=== PATIENT | male | born 1970 | race Caucasian/White ===

== ENCOUNTER 2019-09-01 19:14 | Inpatient (IN) | payer OTHER, SELFPAY ==
[2018-12-07 14:03] VITALS: BMI 28.3
[2019-09-01] VITALS (10 sets, daily range): BP systolic 124–170; BP diastolic 74–95; PULSE 76–117; RESP 16–30; TEMP 36.6–37.7; O2SAT 91–99; BMI 28.4; BMI 27.6
--- NOTE | 2019-09-01 19:25 | EKG12_ITS ---
Test Reason : CP Blood Pressure : / mmHG Vent. Rate : 108 BPM Atrial Rate : 108 BPM P-R Int : 138 ms QRS Dur : 094 ms QT Int : 324 ms P-R-T Axes : 027 043 026 degrees QTc Int : 434 ms Sinus tachycardia Otherwise normal ECG Confirmed by ROEL HAN, JONY ([id number]), editor newspaper CORINA GUPTA ([id number] on 09/03/2019 11:16:22 AM Referred By: UG Confirmed By:JONY SEVILLA MD
--- NOTE | 2019-09-01 19:30 | ED.VIS.GEN ---
History of Present Illness Chief Complaint: Weakness Detail of Chief Complaint: Altered mental status after ingestion of 2000 mg cannabis oil Informant: Significant Other, Ruby Rails Developer Limited by: Coma, Intoxicated, Stupor Onset: Hours Context: Sudden Onset Timing: Continuous Quality: Patient with altered mental status Location: From home Current Severity: Severe Maximum Severity: Severe Worsened by: Ingestion of 2000 mg cannabis oil Relieved by: Nothing Associated Symptoms: Unable to determine Narrative: Patient is a 49-year-old male with history of hypertension. does not know what medications he is on. He apparently consumed CBD concentrated oil. Two thirds of the bottle is empty. A vial contains 3000 mg. Presume patient ingested 2000 mg. Since he has altered mental status with dilated pupils with generalized weakness and inability to sit upright or control the use of his extremities poison control was contacted. They recommended benzodiazepine for agitation. They said there is concern for hypothermia and hyperthermia. If this occurs they recommend contacting them again. Because there is concern for hypothermia and hyperthermia a temperature probe Ospina was placed. I was informed this is a significant ingestion. Therefore once labs return will contact hospitalist for admission. Prior similar symptoms: No Recent Illness/Hospitalization: No - Past Medical History (1) Dyspnea on exertion Status: Acute (2) Essential (primary) hypertension Status: Chronic (3) Hyperlipidemia Status: Chronic Past Medical History - Allergies and Home Meds Allergies/Adverse Reactions: Allergies atenolol Adverse Reaction (Verified 09/01/19 19:15) unknown atorvastatin [From Lipitor] Adverse Reaction (Verified 09/01/19 19:15) myalgia isosorbide Adverse Reaction (Verified 09/01/19 19:15) headache simvastatin Adverse Reaction (Verified 09/01/19 19:15) myalgia Primary Care Physician: Lyndsay Hardy DO [Primary Care Provider] - Prior records reviewed: Yes Surgical History: noncontributory Lives: Spouse/ Significant Other Smoking Status: Current some day smoker Drugs: Marijuana Review of Systems ROS: Unable to Obtain Physical Exam Vital Signs/Narrative: Vital Signs Temp Pulse Resp BP Pulse Ox 09/01/19 19:15 97.8 F 115 H 30 H 170/95 H 96 Inital Vital Signs reviewed: Yes General: Well nourished, Well developed, No Acute Distress Head: Normocephalic, Atraumatic. Negative for: Trauma, Tenderness Eyes: Negative for: Perrl - Pupils are 5 to 6 mm in size and do react. Gaze is disconjugate., Pale conjunctiva, Scleral icterus ENT: No rhinorrhea, TM's clear. Negative for: Moist mucous membranes Neck: Supple, Nontender, No lymphadenopathy, No JVD, - - Neck he has midline. There is no inspiratory expiratory stridor. Cardiovascular: Regular rhythm, No murmurs, Normal S1, Normal S2, Tachycardia Respiratory: No distress, CTA bilaterally, Chest nontender Abdomen: Soft, Nontender, Nondistended, Normal bowel sounds, No masses Rectal: Deferred Back: Nontender, Normal Inspection Extremities: No edema Skin: Normal color, No rash, No Trauma. Negative for: Cyanosis, Diaphoresis, Jaundice Neurological: Cranial nerves II-XII grossly intact, Normal Sensation - Grimaces to noxious stimuli., Normal DTR - There is no clonus or Babinski sign.. Negative for: Alert, Oriented x3, Normal Strength, Normal Gait Diagnostic/Tx/Re-eval Laboratory Results 09/01/19 09/01/19 09/01/19 19:24 19:24 19:24 WBC 4.0 L RBC 5.06 Hgb 16.2 Hct 45.9 MCV 90.7 MCH 32.0 MCHC 35.3 RDW Std Deviation 37.8 RDW Coeff of Alexi 11.5 L Plt Count 222 MPV 9.5 Immature Gran % (Auto) 0.800 Neut % (Auto) 62.3 Lymph % (Auto) 22.0 [place] % (Auto) 8.8 Eos % (Auto) 4.8 Baso % (Auto) 1.3 H Absolute Neuts (auto) 2.5 Absolute Lymphs (auto) 0.87 Nucleated RBC % 0 Sodium 140 Potassium 3.2 L Chloride 103 Carbon Dioxide 29.0 Anion Gap 8 BUN 15 Creatinine 1.34 H Estim Creat Clear Calc 68.85 Est GFR (MDRD) Af Amer 73 Est GFR (MDRD) Non-Af 60 BUN/Creatinine Ratio 11.2 Glucose 118 H Lactic Acid 1.8 Calcium 9.1 Total Bilirubin 0.50 AST 29 ALT 55 Alkaline Phosphatase 73 Total Protein 7.2 Albumin 3.6 Globulin 3.6 Albumin/Globulin Ratio 1.0 - Rhythm Strip Rhythm Strip: Sinus Tach Rate: 122 Ectopy: None - EKG Initial EKG Interpretation: Sinus Tachycardia - Tachycardia with a ventricular rate of 108. OR interval 138 ms. QRS duration 94 ms. QT duration 324 ms. [place] is normal. Only abnormality is sinus tachycardia - Medical Decision Making Patient was made n.p.o. IV was placed. Placed on the monitor. Temperature probe Ospina for reasons previously documented. Blood work was obtained. Care is supportive. If he has difficulty controlling airway recommendation is intubation to protect his airway. If he becomes hypothermic or hyperthermic will contact poison control again. The person at poison control recommended benzodiazepines if he becomes agitated. Nurses been made aware need for temperature probe Ospina and reason why. Case was discussed with hospitalist. He request I spoke with advertising copywriter. Spoke with Dr. Hemal Jefferson. Plan is admission to ICU. - Critical Care Time Critical care time (excluding procedures): 30-74 minutes, Discussing w/Patient &/or Family/Third Helper, Discussing w/Consultants, Arranging Admission or Transfer - Critical care time 33 minutes ED Disposition - Plan for ED Patient: Diagnosis: Cannabis abuse with intoxication with perceptual disturbance, Mydriasis (persistent), not due to mydriatics, Sinus tachycardia by electrocardiogram Referrals: Lyndsay Hardy DO [Primary Care Provider] -
[2019-09-01 19:40] LABS: Absolute Lymphocyte Count 0.87 X10^3/uL (0.83-4.51); Absolute Neutrophil Count 2.5 X10^3/uL (2.0-7.7); Basophil# 0.05 X10^3/uL; Basophil% 1.3 % (0-1); Eosinophil# 0.19 X10^3/uL; Eosinophils% 4.8 % (0-5); Hematocrit 45.9 % (40-54); Hemoglobin 16.2 g/dL (13.0-16.5); Lymphocyte # 0.87 X10^3/ul (4.0); Mean Corp Hgb Conc 35.3 g/dL (32-36); Mean Corpuscular Volume 90.7 fL (80-94); Mean Platelet Vol. 9.5 fl (6.2-12.0); Monocyte# 0.35 X10^3/uL; Monocyte% 8.8 % (0-10); NRBC Flagged by Analyzer 0 % (0-5); Neutrophil # 2.47 X10^3/uL (2.7-7.7); Neutrophil % 62.3 % (47-70); Platelet Count 222 K/mm3 (150-450); RBC Distribution Width CV 11.5 % (11.6-14.6); RBC Distribution Width SD 37.8 fl (35.1-43.9); Red Blood Count 5.06 M/mm3 (4.6-6.2)
[2019-09-01 20:03] LABS: AST(SGOT) 29 U/L (15-37); Alanine Aminotransfer ALT/SGPT 55 U/L (16-61); Albumin, Serum 3.6 g/dL (3.2-5.0); Alkaline Phosphatase 73 U/L (45-117); Anion Gap 8 (5-15); BUN 15 mg/dL (7-18); BUN/Creat Ratio 11.2 RATIO (10-20); Calcium,Total 9.1 mg/dL (8.5-10.1); Chloride 103 mmol/L (98-107); Creatinine, Serum 1.34 mg/dL (0.70-1.30); EST Glomerular Filtration Rate 60 mL/min (>60); Est Glom Filt Rate - Afr Amer 73 mL/min (>60); Estimated Creatinine Clearance 68.85 ml/min; Globulin 3.6 g/dL (2.2-4.2); Glucose 118 mg/dL (74-106); Potassium 3.2 mmol/L (3.5-5.1); Protein, Total 7.2 g/dL (6.4-8.2); Sodium Level 140 mmol/L (136-145)
[2019-09-01 20:09] LABS: Lactic Acid 1.8 mmol/L (0.4-1.9)
--- NOTE | 2019-09-01 21:09 | HP.PCM_ITS ---
Problem List (1) Toxic encephalopathy Status: Acute (2) Accidental cannabis poisoning Status: Acute (3) Cannabis abuse with intoxication with perceptual disturbance Status: Acute (4) Mydriasis (persistent), not due to mydriatics Status: Acute (5) Sinus tachycardia by electrocardiogram Status: Acute (6) Hyperlipidemia Status: Chronic Qualifiers: Hyperlipidemia type: unspecified Qualified Code(s): E78.5 - Hyperlipidemia, unspecified (7) Essential (primary) hypertension Status: Chronic History of Present Illness Date of Admission: 09/01/19 Chief Complaint: altered mental status The patient is a 49 year old M with a significant history of hypertension; and hyperlipidemia who presents emergency department with altered mental status. Reportedly patient used about 2000 mg of cannabinoid oil. He use it because he has knee pain. History was taken from Emergency department doctor and patient's since the patient is confused; obtunded and unable to provide information. Patient took the cannabinoid oil on the same day of presentation. Associated with his symptoms is weakness; dizziness; chest pain; abdominal pain and slurry speech. Per his he took cannabinoid about a month ago too. At emergency part the patient was found to have mydriasis. Emergent department doctor discussed the case with combatant swimmer and the plan is to admit patient to the intensive care unit. Past Medical History Past Medical History (Chronic Problems): Chronic Problems (Last Reviewed 09/01/19 @ 21:[address] Tigre Zimmerman MD) Hyperlipidemia (Chronic) Essential (primary) hypertension (Chronic) Medical History: Medical History (Last Reviewed 09/01/19 @ 22:[address] Tigre Zimmerman MD) Hyperlipidemia (Chronic) E78.5 Essential (primary) hypertension (Chronic) I10 GERD (gastroesophageal reflux disease) K21.9 Allergies atenolol Adverse Reaction (Verified 09/01/19 19:15) unknown atorvastatin [From Lipitor] Adverse Reaction (Verified 09/01/19 19:15) myalgia isosorbide Adverse Reaction (Verified 09/01/19 19:15) headache simvastatin Adverse Reaction (Verified 09/01/19 19:15) myalgia Home Medications: Ambulatory Orders Medication Instructions Recorded hydrochlorothiazide 25 mg tablet 25 mg PO .daily at noon #90 tab 04/19/19 lisinopril 20 mg tablet 20 mg PO QAM #1 tab 04/19/19 Surgical History: Surgical History (Last Reviewed 09/01/19 @ 22:[address] Tigre Zimmerman MD) History of herniorrhaphy Z98.890, Z87.19 History of left heart catheterization Onset Date: 04/24/16 Z98.890 History of repair of hiatal hernia Z98.890, Z87.19 Lives: Spouse/ Significant Other Smoking Status: Current some day smoker Tobacco Use: Cigars Drugs: Marijuana Review of Systems Constitutional: Reports: Weakness. Denies: Chills, Fever, Weight Change HEENT: Denies: Head Aches, Sinus Congestion, Sinus Drainage Cardiovascular: Reports: Chest Pain. Denies: Palpitations Respiratory: Denies: Cough, Shortness of breath at rest, Sputum production Gastrointestinal: Reports: Abdominal Pain. Denies: Nausea, Vomiting Genitourinary: Denies: Dysuria Musculoskeletal: Denies: Joint Pain, Joint Tenderness Skin: Denies: Rash, Wounds Neurological: Reports: Confusion. Denies: Focal weakness, Numbness, Tingling Psychiatric: Denies: Anxiety, Depression, Homicidal Ideations, Suicidal Ideations Hematologic/ Lymphatic: Denies: Easy Bruising, Easy Bleeding VTE Information - Inpt Only VTE Present on Admission: No VTE Mechan Device Prophylaxis: None VTE Pharm Prophylaxis ordered?: Yes Patient Problems: Active and Suspected Problems (Last Reviewed 09/01/19 @ 21:[address] Tigre Zimmerman MD) Cannabis abuse with intoxication with perceptual disturbance (Acute) Mydriasis (persistent), not due to mydriatics (Acute) Sinus tachycardia by electrocardiogram (Acute) Toxic encephalopathy (Acute) Accidental cannabis poisoning (Acute) - Physical Exam Vitals/I&O's: Vital Signs Temp Pulse Resp BP Pulse Ox 99.8 F H 101 H 19 H 144/87 H 97 09/01/19 20:35 09/01/19 20:35 09/01/19 20:35 09/01/19 20:35 09/01/19 20:35 Oxygen Flow Rate (L/min) 2 Oxygen Delivery Method Nasal Cannula Weight: 89.811 kg Body Mass Index (BMI) 28.4 General: Confused, - - Obtunded HEENT: Atraumatic, Normocephalic, - - Mydriatic pupil that react to light only slightly and stays enlarged. Neck: Supple, No JVD, Negative Carotid Bruits, Trachea Midline Lungs: No wheeze, No rales, Rhonchi - Mild Cardiovascular: Normal S1, Normal S2, No murmurs, Tachycardic Abdomen: Bowel Sounds Present, Soft, Non Tender Extremities: No edema, Capillary Refill Less than 3 Seconds Skin: No rashes, No breakdown Musculoskeletal: No Tenderness to Palpation of Joints or Extremities Neurological: - - Obtunded; does not follow commands. Psych/Mental Status: Normal Affect, Appropriate Laboratory Results 09/01/19 19:24: WBC 4.0 L, RBC 5.06, Hgb 16.2, Hct 45.9, MCV 90.7, MCH 32.0, MCHC 35.3, RDW Std Deviation 37.8, RDW Coeff of Alexi 11.5 L, Plt Count 222, MPV 9.5, Immature Gran % (Auto) 0.800, Neut % (Auto) 62.3, Lymph % (Auto) 22.0, [place] % (Auto) 8.8, Eos % (Auto) 4.8, Baso % (Auto) 1.3 H, Absolute Neuts (auto) 2.5, Absolute Lymphs (auto) 0.87, Nucleated RBC % 0 09/01/19 19:24: Sodium 140, Potassium 3.2 L, Chloride 103, Carbon Dioxide 29.0, Anion Gap 8, BUN 15, Creatinine 1.34 H, Estim Creat Clear Calc 68.85, Est GFR (MDRD) Af Amer 73, Est GFR (MDRD) Non-Af 60, BUN/Creatinine Ratio 11.2, Glucose 118 H, Calcium 9.1, Total Bilirubin 0.50, AST 29, ALT 55, Alkaline Phosphatase 73, Total Protein 7.2, Albumin 3.6, Globulin 3.6, Albumin/Globulin Ratio 1.0 09/01/19 19:24: Lactic Acid 1.8 Assessment/Plan All Active Problems (Last Reviewed 09/01/19 @ 21:[address] Tigre Zimmerman MD) Cannabis abuse with intoxication with perceptual disturbance (Acute) Mydriasis (persistent), not due to mydriatics (Acute) Sinus tachycardia by electrocardiogram (Acute) Toxic encephalopathy (Acute) Accidental cannabis poisoning (Acute) The patient is a 49 year old M with a significant history of hypertension; and hyperlipidemia who presents emergency department with altered mental status after using excessive dose of cannabinoid oil because of reported knee pain. Acute toxic encephalopathy from a cannabinoid overdose. We will admit to the intensive care unit. We will keep patient n.p.o. since patient is obtunded and cannot take p.o. Supportive treatment with normal saline with potassium. Check electrolytes and replace per ICU protocol. If patient develops high-grade fever or hypothermia consult poison control. Troponin series. [place] consult. Hypokalemia Replace Trend Check magnesium level. Hypertension On presentation blood pressure was now within goal Hold home p.o. blood pressure medication. Patient is allergic to atenolol. PRN hydralazine ordered. Tobacco abuse Counseled when appropriate. DVT prophylaxis Subcutaneous Lovenox Inpatient E&M: 25293 Init Hosp L3
[2019-09-01] MEDS: Potassium Chloride 40 MEQ in 0.9% Normal Saline 1,000 ML 100 MEQ IV (22:09)
[2019-09-01 22:15] LABS: Anion Gap 5 (5-15); BUN 14 mg/dL (7-18); BUN/Creat Ratio 11.5 RATIO (10-20); Calcium,Total 8.9 mg/dL (8.5-10.1); Chloride 108 mmol/L (98-107); Creatinine, Serum 1.22 mg/dL (0.70-1.30); EST Glomerular Filtration Rate 67 mL/min (>60); Est Glom Filt Rate - Afr Amer 81 mL/min (>60); Estimated Creatinine Clearance 75.63 ml/min; Glucose 109 mg/dL (74-106); Magnesium 2.3 mg/dL (1.6-2.6); Potassium 3.8 mmol/L (3.5-5.1); Sodium Level 142 mmol/L (136-145)
[2019-09-01] MEDS: Potassium Chloride 10mEq/100mL 10 MEQ/100 ML IV.SOLN. 100 MEQ IV BOLUS ×2 (22:15→23:15)
[2019-09-01 22:23] LABS: Phosphorus 2.7 mg/dL (2.5-4.9)
--- NOTE | 2019-09-01 22:30 | NURSING ---
POISON CONTROL CALLED TO CHECK UP PT. UPDATE GIVEN.
[2019-09-01 22:41] LABS: Bedside Glucose 128 mg/dL (70-110)
[2019-09-01] MEDS: 0.9% Saline Lock 10 ML Syringe IV (22:41)
[2019-09-02] VITALS (17 sets, daily range): BP systolic 115–150; BP diastolic 69–97; PULSE 68–92; RESP 16–90; TEMP 36.8–37.3; O2SAT 97–99
[2019-09-02] MEDS: Potassium Chloride 10mEq/100mL 10 MEQ/100 ML IV.SOLN. 100 MEQ IV BOLUS ×2 (00:16→01:50)
[2019-09-02 04:39] LABS: Absolute Lymphocyte Count 0.73 X10^3/uL (0.83-4.51); Absolute Neutrophil Count 2.6 X10^3/uL (2.0-7.7); Basophil# 0.03 X10^3/uL; Basophil% 0.8 % (0-1); Eosinophil# 0.13 X10^3/uL; Eosinophils% 3.4 % (0-5); Hematocrit 41.4 % (40-54); Hemoglobin 14.6 g/dL (13.0-16.5); Lymphocyte # 0.73 X10^3/ul (4.0); Lymphocyte % 18.9 % (19-41); Mean Corp Hgb Conc 35.3 g/dL (32-36); Mean Corpuscular Volume 90.8 fL (80-94); Mean Platelet Vol. 9.6 fl (6.2-12.0); Monocyte# 0.36 X10^3/uL; Monocyte% 9.3 % (0-10); NRBC Flagged by Analyzer 0 % (0-5); Neutrophil % 67.1 % (47-70); Platelet Count 191 K/mm3 (150-450); RBC Distribution Width CV 11.5 % (11.6-14.6); RBC Distribution Width SD 37.9 fl (35.1-43.9); Red Blood Count 4.56 M/mm3 (4.6-6.2); White Blood Count 3.9 K/mm3 (4.4-11.0)
[2019-09-02 05:07] LABS: Albumin, Serum 2.8 g/dL (3.2-5.0); Anion Gap 4 (5-15); BUN 12 mg/dL (7-18); BUN/Creat Ratio 11.8 RATIO (10-20); Calcium,Total 8.4 mg/dL (8.5-10.1); Chloride 109 mmol/L (98-107); Creatinine, Serum 1.02 mg/dL (0.70-1.30); EST Glomerular Filtration Rate 82 mL/min (>60); Est Glom Filt Rate - Afr Amer 100 mL/min (>60); Estimated Creatinine Clearance 90.45 ml/min; Glucose 105 mg/dL (74-106); Sodium Level 141 mmol/L (136-145)
--- NOTE | 2019-09-02 06:00 | PCM.CON.CC ---
Reason for Consult Date of Consultation: 09/02/19 Reason for Consultation: Acute toxic encephalopathy History of Present Illness: The patient is a 49-year-old male, with a history as outlined below, who presented to the emergency department on August 31 with altered mentation after having ingested 2 g of cannabis oil. The patient reported that he has chronic knee pain and subsequently started using CBD oils to help alleviate the discomfort. He stated that he did not intend to ingest as much of the oil as he did. On presentation to the emergency department, the patient was noted to be afebrile, but was tachycardic and tachypneic. He was, nevertheless, maintaining appropriate oxygen saturations on room air. Laboratory evaluation was remarkable only for a potassium of 3.2. There was mild acute kidney injury with a creatinine of 1.34. Lactate was within normal limits. Hepatic function was within normal limits. Troponins were negative. Poison control was contacted and provided guidance on patient care. Due to the patient's depressed mental state, he was admitted to the medical intensive care unit for close monitoring. This morning, the patient is still somewhat somnolent, but is able to arouse and answer questions appropriately. Past Medical History Past Medical History (Chronic Problems): Chronic Problems (Last Reviewed 09/01/19 @ 22:[address] Tigre Zimmerman MD) Hyperlipidemia (Chronic) Essential (primary) hypertension (Chronic) Medical History: Medical History (Last Reviewed 09/01/19 @ 22:[address] Tigre Zimmerman MD) Hyperlipidemia (Chronic) E78.5 Essential (primary) hypertension (Chronic) I10 GERD (gastroesophageal reflux disease) K21.9 Allergies atenolol Adverse Reaction (Verified 09/01/19 19:15) unknown atorvastatin [From Lipitor] Adverse Reaction (Verified 09/01/19 19:15) myalgia isosorbide Adverse Reaction (Verified 09/01/19 19:15) headache simvastatin Adverse Reaction (Verified 09/01/19 19:15) myalgia Home Medications: Ambulatory Orders Medication Instructions Recorded hydrochlorothiazide 25 mg tablet 25 mg PO .daily at noon #90 tab 04/19/19 lisinopril 20 mg tablet 20 mg PO QAM #1 tab 04/19/19 Surgical History: Surgical History (Last Reviewed 09/01/19 @ 22:[address] Tigre Zimmerman MD) History of herniorrhaphy Z98.890, Z87.19 History of left heart catheterization Onset Date: 04/24/16 Z98.890 History of repair of hiatal hernia Z98.890, Z. Surgical History: noncontributory Lives: Spouse/ Significant Other Smoking Status: Current some day smoker Tobacco Use: Cigars Drugs: Marijuana Review of Systems Constitutional: Denies: Chills, Fever, Malaise, Fatigue Eyes: Denies: Blurred vision, Double vision HEENT: Denies: Head Aches, Sinus Congestion, Sinus Drainage Cardiovascular: Denies: Chest Pain, Palpitations Respiratory: Denies: Cough, Shortness of breath at rest, Sputum production Gastrointestinal: Denies: Abdominal Pain, Nausea, Vomiting Genitourinary: Denies: Dysuria Musculoskeletal: Reports: Joint Pain Skin: Denies: Rash, Wounds Neurological: Reports: Confusion Psychiatric: Denies: Anxiety, Depression, Homicidal Ideations, Suicidal Ideations Hematologic/ Lymphatic: Denies: Easy Bruising, Easy Bleeding Patient Problems: Active and Suspected Problems (Last Reviewed 09/01/19 @ 22:[address] Tigre Zimmerman MD) Cannabis abuse with intoxication with perceptual disturbance (Acute) Mydriasis (persistent), not due to mydriatics (Acute) Sinus tachycardia by electrocardiogram (Acute) Toxic encephalopathy (Acute) Accidental cannabis poisoning (Acute) Objective: The patient's most recent lab work, culture data and imaging studies have all been personally reviewed. - Physical Exam Vitals/I&O's: Vital Signs Temp Pulse Resp BP Pulse Ox 98.2 F 68 16 132/74 H 98 09/02/19 05:00 09/02/19 05:00 09/02/19 05:00 09/02/19 05:00 09/02/19 05:00 Oxygen Flow Rate (L/min) 2 Oxygen Delivery Method Room Air Weight: 192 lb 10.944 oz Body Mass Index (BMI) 27.6 Intake and Output for Last 24 Hours 08/31/19 09/01/19 09/02/19 23:59 23:59 23:59 Intake Total 100.25 / 100.25 300 / 300 Output Total 850 / 850 650 / 650 Balance -749.75 / -749.75 -350 / -350 General: Alert, Cooperative, No apparent distress, - - Still somewhat somnolent but able to answer questions appropriately. Alert and oriented to person place and time. HEENT: Atraumatic, PERRLA, Normocephalic Oral: No Gingival or Mucosal Lesions/ Ulcerations Neck: Supple, No Nodes, Trachea Midline Lungs: Normal air movement, No rhonchi, No wheeze, No rales Cardiovascular: Regular rate, Regular Rhythm, Normal S1, Normal S2, No murmurs Abdomen: Bowel Sounds Present, Soft, Non Tender Extremities: No clubbing, No cyanosis, No edema Skin: No breakdown Musculoskeletal: No Muscle Wasting Lymphatic: No Cervical, Supraclavicular, or Inguinal Adenopathy Neurological: Neuro grossly intact Psych/Mental Status: Flat Affect Labs (Last 48 Hours) 09/01/19 09/01/19 09/01/19 19:24 19:24 19:24 WBC 4.0 L RBC 5.06 Hgb 16.2 Hct 45.9 MCV 90.7 MCH 32.0 MCHC 35.3 RDW Std Deviation 37.8 RDW Coeff of Alexi 11.5 L Plt Count 222 MPV 9.5 Immature Gran % (Auto) 0.800 Neut % (Auto) 62.3 Lymph % (Auto) 22.0 [place] % (Auto) 8.8 Eos % (Auto) 4.8 Baso % (Auto) 1.3 H Absolute Neuts (auto) 2.5 Absolute Lymphs (auto) 0.87 Nucleated RBC % 0 Sodium 140 Potassium 3.2 L Chloride 103 Carbon Dioxide 29.0 Anion Gap 8 BUN 15 Creatinine 1.34 H Estim Creat Clear Calc 68.85 Est GFR (MDRD) Af Amer 73 Est GFR (MDRD) Non-Af 60 BUN/Creatinine Ratio 11.2 Glucose 118 H Lactic Acid 1.8 Calcium 9.1 Phosphorus Magnesium Total Bilirubin 0.50 AST 29 ALT 55 Alkaline Phosphatase 73 Troponin I Total Protein 7.2 Albumin 3.6 Globulin 3.6 Albumin/Globulin Ratio 1.0 POC Glucose 09/01/19 09/01/19 09/01/19 21:52 21:52 22:25 WBC RBC Hgb Hct MCV MCH MCHC RDW Std Deviation RDW Coeff of Alexi Plt Count MPV Immature Gran % (Auto) Neut % (Auto) Lymph % (Auto) [place] % (Auto) Eos % (Auto) Baso % (Auto) Absolute Neuts (auto) Absolute Lymphs (auto) Nucleated RBC % Sodium 142 Potassium 3.8 Chloride 108 H Carbon Dioxide 29.0 Anion Gap 5 BUN 14 Creatinine 1.22 Estim Creat Clear Calc 75.63 Est GFR (MDRD) Af Amer 81 Est GFR (MDRD) Non-Af 67 BUN/Creatinine Ratio 11.5 Glucose 109 H Lactic Acid Calcium 8.9 Phosphorus 2.7 Magnesium 2.3 Total Bilirubin AST ALT Alkaline Phosphatase Troponin I 0.030 Total Protein Albumin Globulin Albumin/Globulin Ratio POC Glucose 128 H 09/02/19 09/02/19 09/02/19 01:00 04:05 04:05 WBC 3.9 L RBC 4.56 L Hgb 14.6 Hct 41.4 MCV 90.8 MCH 32.0 MCHC 35.3 RDW Std Deviation 37.9 RDW Coeff of Alexi 11.5 L Plt Count 191 MPV 9.6 Immature Gran % (Auto) 0.500 Neut % (Auto) 67.1 Lymph % (Auto) 18.9 L [place] % (Auto) 9.3 Eos % (Auto) 3.4 Baso % (Auto) 0.8 Absolute Neuts (auto) 2.6 Absolute Lymphs (auto) 0.73 L Nucleated RBC % 0 Sodium 141 Potassium 4.0 Chloride 109 H Carbon Dioxide 28.0 Anion Gap 4 L BUN 12 Creatinine 1.02 Estim Creat Clear Calc 90.45 Est GFR (MDRD) Af Amer 100 Est GFR (MDRD) Non-Af 82 BUN/Creatinine Ratio 11.8 Glucose 105 Lactic Acid Calcium 8.4 L Phosphorus Magnesium Total Bilirubin AST ALT Alkaline Phosphatase Troponin I 0.024 Total Protein Albumin 2.8 L Globulin Albumin/Globulin Ratio POC Glucose 09/02/19 04:05 WBC RBC Hgb Hct MCV MCH MCHC RDW Std Deviation RDW Coeff of Alexi Plt Count MPV Immature Gran % (Auto) Neut % (Auto) Lymph % (Auto) [place] % (Auto) Eos % (Auto) Baso % (Auto) Absolute Neuts (auto) Absolute Lymphs (auto) Nucleated RBC % Sodium Potassium Chloride Carbon Dioxide Anion Gap BUN Creatinine Estim Creat Clear Calc Est GFR (MDRD) Af Amer Est GFR (MDRD) Non-Af BUN/Creatinine Ratio Glucose Lactic Acid Calcium Phosphorus Magnesium Total Bilirubin AST ALT Alkaline Phosphatase Troponin I < 0.015 Total Protein Albumin Globulin Albumin/Globulin Ratio POC Glucose Current Medications Dextrose (D50w Syringe) 0 gm IV X1 PRN; Protocol PRN Reason: Hypoglycemia Enoxaparin Sodium (Lovenox) 40 mg SC DAILY DARREL Glucagon () 1 mg IM .X1 PRN PRN Reason: Hypoglycemia Hydralazine HCl (Apresoline Iv) 5 mg IV Q4H PRN PRN PRN Reason: SBP > 160 Potassium Chloride 40 meq/ (Sodium Chloride) 1,020 mls @ 100 mls/hr IV .[id number] DARREL Last Admin: 09/01/19 22:09 Dose: 100 mls/hr Documented by: Sodium Chloride () 250 mls @ 15 mls/hr IV .[id number] PRN PRN Reason: Saline Flush Last Infusion: 09/01/19 22:32 Dose: 0 mls/hr Documented by: Sodium Chloride () 250 mls @ 15 mls/hr IV .[id number] PRN PRN Reason: Additional IVPB Infusion Ondansetron HCl (Zofran) 4 mg IV Q8H PRN PRN PRN Reason: NAUSEA/VOMITING Sodium Chloride () 10 - 40 ml IV UD PRN PRN Reason: SALINE FLUSH Last Admin: 09/01/19 22:41 Dose: 10 ml Documented by: Assessment/Plan Active and Suspected Problems (Last Reviewed 09/01/19 @ 22:[address] Tigre Zimmerman MD) Cannabis abuse with intoxication with perceptual disturbance (Acute) Mydriasis (persistent), not due to mydriatics (Acute) Sinus tachycardia by electrocardiogram (Acute) Toxic encephalopathy (Acute) Accidental cannabis poisoning (Acute) RECOMMENDATIONS: 1. Continue IV fluid hydration as tolerated. 2. Okay to advance diet. 3. The patient is medically stable for transfer out of the intensive care unit. IMPRESSIONS: 1. Acute toxic encephalopathy Secondary to unintentional overdose of CBD oils. The patient has remained clinically stable overnight. His encephalopathy is improving. Continue fluid hydration as tolerated. 2. Mild ADELINE/hypokalemia Likely prerenal in etiology. Creatinine has improved with volume expansion. Continue to monitor urine output. No current indication for renal replacement therapy. 3. History of chronic knee pain/hypertension Complicates care, management, recovery and prognosis. Resume home antihypertensives at discharge. This note was generated with Dragon dictation software. It may contain incorrect words, spelling, and punctuation that were not noted in checking the note before signing. Inpatient E&M: 59793 Init Hosp L3
--- NOTE | 2019-09-02 06:52 | PCM.PN.HOSP ---
Patient Problems: Active and Suspected Problems (Last Reviewed 09/01/19 @ 22:[address] Tigre Zimmerman MD) Cannabis abuse with intoxication with perceptual disturbance (Acute) Mydriasis (persistent), not due to mydriatics (Acute) Sinus tachycardia by electrocardiogram (Acute) Toxic encephalopathy (Acute) Accidental cannabis poisoning (Acute) Vitals/I&O's: Vital Signs Temp Pulse Resp BP Pulse Ox 98.3 F 74 16 143/89 H 97 09/02/19 06:00 09/02/19 06:00 09/02/19 06:00 09/02/19 06:00 09/02/19 06:00 Oxygen Flow Rate (L/min) 2 Oxygen Delivery Method Nasal Cannula Weight: 194 lb 3.636 oz Body Mass Index (BMI) 27.6 Intake and Output for Last 24 Hours 08/31/19 09/01/19 09/02/19 23:59 23:59 23:59 Intake Total 100.25 / 100.25 300 / 300 Output Total 850 / 850 825 / 825 Balance -749.75 / -749.75 -525 / -525 Laboratory Results 09/01/19 19:24: WBC 4.0 L, RBC 5.06, Hgb 16.2, Hct 45.9, MCV 90.7, MCH 32.0, MCHC 35.3, RDW Std Deviation 37.8, RDW Coeff of Alexi 11.5 L, Plt Count 222, MPV 9.5, Immature Gran % (Auto) 0.800, Neut % (Auto) 62.3, Lymph % (Auto) 22.0, [place] % (Auto) 8.8, Eos % (Auto) 4.8, Baso % (Auto) 1.3 H, Absolute Neuts (auto) 2.5, Absolute Lymphs (auto) 0.87, Nucleated RBC % 0 09/01/19 19:24: Sodium 140, Potassium 3.2 L, Chloride 103, Carbon Dioxide 29.0, Anion Gap 8, BUN 15, Creatinine 1.34 H, Estim Creat Clear Calc 68.85, Est GFR (MDRD) Af Amer 73, Est GFR (MDRD) Non-Af 60, BUN/Creatinine Ratio 11.2, Glucose 118 H, Calcium 9.1, Total Bilirubin 0.50, AST 29, ALT 55, Alkaline Phosphatase 73, Total Protein 7.2, Albumin 3.6, Globulin 3.6, Albumin/Globulin Ratio 1.0 09/01/19 19:24: Lactic Acid 1.8 09/01/19 21:52: Sodium 142, Potassium 3.8, Chloride 108 H, Carbon Dioxide 29.0, Anion Gap 5, BUN 14, Creatinine 1.22, Estim Creat Clear Calc 75.63, Est GFR (MDRD) Af Amer 81, Est GFR (MDRD) Non-Af 67, BUN/Creatinine Ratio 11.5, Glucose 109 H, Calcium 8.9, Magnesium 2.3 09/01/19 21:52: Phosphorus 2.7, Troponin I 0.030 09/01/19 22:25: POC Glucose 128 H 09/02/19 01:00: Troponin I 0.024 09/02/19 04:05: WBC 3.9 L, RBC 4.56 L, Hgb 14.6, Hct 41.4, MCV 90.8, MCH 32.0, MCHC 35.3, RDW Std Deviation 37.9, RDW Coeff of Alexi 11.5 L, Plt Count 191, MPV 9.6, Immature Gran % (Auto) 0.500, Neut % (Auto) 67.1, Lymph % (Auto) 18.9 L, [place] % (Auto) 9.3, Eos % (Auto) 3.4, Baso % (Auto) 0.8, Absolute Neuts (auto) 2.6, Absolute Lymphs (auto) 0.73 L, Nucleated RBC % 0 09/02/19 04:05: Sodium 141, Potassium 4.0, Chloride 109 H, Carbon Dioxide 28.0, Anion Gap 4 L, BUN 12, Creatinine 1.02, Estim Creat Clear Calc 90.45, Est GFR (MDRD) Af Amer 100, Est GFR (MDRD) Non-Af 82, BUN/Creatinine Ratio 11.8, Glucose 105, Calcium 8.4 L, Albumin 2.8 L 09/02/19 04:05: Troponin I < 0.015 Current Medications Dextrose (D50w Syringe) 0 gm IV X1 PRN; Protocol PRN Reason: Hypoglycemia Enoxaparin Sodium (Lovenox) 40 mg SC DAILY DARREL Glucagon () 1 mg IM .X1 PRN PRN Reason: Hypoglycemia Hydralazine HCl (Apresoline Iv) 5 mg IV Q4H PRN PRN PRN Reason: SBP > 160 Potassium Chloride 40 meq/ (Sodium Chloride) 1,020 mls @ 100 mls/hr IV .[id number] DARREL Last Admin: 09/01/19 22:09 Dose: 100 mls/hr Documented by: Sodium Chloride () 250 mls @ 15 mls/hr IV .[id number] PRN PRN Reason: Saline Flush Last Infusion: 09/01/19 22:32 Dose: 0 mls/hr Documented by: Sodium Chloride () 250 mls @ 15 mls/hr IV .[id number] PRN PRN Reason: Additional IVPB Infusion Ondansetron HCl (Zofran) 4 mg IV Q8H PRN PRN PRN Reason: NAUSEA/VOMITING Sodium Chloride () 10 - 40 ml IV UD PRN PRN Reason: SALINE FLUSH Last Admin: 09/01/19 22:41 Dose: 10 ml Documented by: STROKE Vital Signs/Narrative: Vital Signs Temp Pulse Resp BP Pulse Ox 09/02/19 06:00 98.3 F 74 16 143/89 H 97 09/02/19 05:00 98.2 F 68 16 132/74 H 98 09/02/19 04:00 98.2 F 72 17 117/69 97 09/02/19 03:43 68 09/02/19 03:00 98.4 F 84 18 129/89 H 97 Medical Necessity - Tobacco Use Smoking Status: Current some day smoker Tobacco Use: Cigars Assessment/Plan All Active Problems (Last Reviewed 09/01/19 @ 22:[address] Tigre Zimmerman MD) Cannabis abuse with intoxication with perceptual disturbance (Acute) Mydriasis (persistent), not due to mydriatics (Acute) Sinus tachycardia by electrocardiogram (Acute) Toxic encephalopathy (Acute) Accidental cannabis poisoning (Acute)
[2019-09-02] MEDS: 0.9% Normal Saline 1,000 ML 999 ML IV (08:06)
--- NOTE | 2019-09-02 09:20 | CASEMGMT ---
Addendum entered by Ambar Montoya 09/02/19 10:27: Correction: PT/OT evals not ordered/not needed at this time. Script obtained from Dr Todd at this time for OP therapy for pt to take to a location of his choice if he decides he would like OP therapy. Reinforced w/pt importance of f/u with his PCP for pain mgmt for knee pain. Given [facility] DME info/contact info at this time for if pt decides he would like cane/walker to aid in walking when having knee pain/flare ups. Original Note: RN CM [employer]ANC[employer] CM to room to meet with patient for initial transition planning/care coordination assessment. RN CM introduced self and role at [facility]. Pt voices understanding and consents to assessment at this time. Pt resting in bed in no distress at this time. Pt is A/O at this time and answers all questions appropriately. Care providers, pharmacy, and demographics verified/updated at this time. PCP: Dr Hardy Specialists: Dr Soria--[facility]/cardiology [facility] [employer]. Pt states [facility] he has already spoken with the [facility] Liaison Prescription Benefit: none Living Will/HPOA: Does not have either. LNOK: Living Arrangements: Lives in 2 story home w/6 steps to enter. States able to navigate the stairs well unless having a flare up w/knee pain. Bed and bath on main floor. Independent w/ADL's. manages home mgmt tasks. Transportation: Hire drivers DME: Denies using any DME PT/OT evals pending. Pt may need assistive device for ambulation. Pt given handout/info on DME for [facility] population w/contact number. Pt states he is interested in getting DME from there if needed and voices appreciation for info HHC/SNF: No history of either. Pt states he is not sure if he would be interested in OP therapy or not. He was made aware he can f/u w/PCP if he decides in the future he would like to do OP therapy. Pt voices understanding. Pt wishes to return home and states has no concerns with going home at time of discharge. CM to follow for any further discharge planning/needs. Pt voices no further concerns/needs at this time. Advised pt to ask for CM if any further questions/concerns/needs arise. Voices understanding. PLAN: Home PT/OT evals pending Amarilys BSN RN CM
[2019-09-02] MEDS: 0.9% Normal Saline 1,000 ML 150 ML IV (09:27)
[2019-09-02] MEDS: Famotidine 20 MG Tablet PO (10:37)
--- NOTE | 2019-09-02 10:59 | DCINST_ITS ---
- Discharge Diagnoses Current Active Problems: Current Active and Chronic Problems (Last Reviewed 09/01/19 @ 22:[address] Tigre Zimmerman MD) 1. Cannabis derived CBD oil Accidental Overdose with perceptual disturbance with persistent Mydriasis 2. Sinus tachycardia by electrocardiogram secondary to #1 3. Acute Toxic encephalopathy secondary to #1 4. Renal insufficiency secondary to #1, resolved 5. Hypertension 6. Hyperlipidemia 7. Chronic knee pain You will use the following diet at home:: Cardiac Your food should be the consistency of: Regular Your liquids should be the consistency of: Regular/Thin Discharge Activity: - - Use assist devices as needed. Rx given at discharge for outpatient therapy to assist with your chronic knee pain. May resume sexual activity in: No Restrictions Weight Bearing Status: Weight bearing as tolerated Call your doctor if you observe: Fever of 101 or Higher, Inability to urinate, Inability to have a bowel movement, Shortness of breath, Dizziness, Fainting spells, Chest pain, Uncontrolled pain Instructions: Understanding Marijuana Abuse, Reducing Knee Pain and Swelling, ED Knee Pain UKO Additional Instructions: Synthetic cannabinoids like CBD oil can have a wide spectrum of affect including tachycardia, vision changes, nausea and emesis, difficulty walking and slurred speech as well as severe agitation, psychosis, seizure therefore it is very important that these agents be used appropriately. We highly suggest you follow-up with your primary care physician and discuss appropriate intake of these items. Allergies/Adverse Reactions: Allergies atenolol Adverse Reaction (Verified 09/01/19 19:15) unknown atorvastatin [From Lipitor] Adverse Reaction (Verified 09/01/19 19:15) myalgia isosorbide Adverse Reaction (Verified 09/01/19 19:15) headache simvastatin Adverse Reaction (Verified 09/01/19 19:15) myalgia Medications to take at Discharge hydrochlorothiazide 25 mg tablet 25 mg PO .daily at noon #90 tab 04/19/19 lisinopril 20 mg tablet 20 mg PO QAM #1 tab 04/19/19 Primary Care Physician: Lyndsay Hardy DO [Primary Care Provider] - Please follow up with your Primary Care Physician in: Follow-up within 3-5 days to review admission. Test Results: Test results from this visit will be discussed in further detail at your follow- up appointment, if applicable. Proposed Discharge Date: 09/02/19
--- NOTE | 2019-09-02 11:06 | PCM.DC.SUM ---
Discharge Date and Diagnosis - Problem List Patient Problems: Active and Suspected Problems (Last Reviewed 09/01/19 @ 22:[address] Tigre Zimmerman MD) Cannabis abuse with intoxication with perceptual disturbance (Acute) Mydriasis (persistent), not due to mydriatics (Acute) Sinus tachycardia by electrocardiogram (Acute) Toxic encephalopathy (Acute) Accidental cannabis poisoning (Acute) Date of Admission: 09/01/19 Date of Discharge: 09/02/19 - Primary Discharge Diagnosis Acute Problems: Active Problems (Last Reviewed 09/01/19 @ 22:[address] Tigre Zimmerman MD) 1. Cannabis derived CBD oil Accidental Overdose with perceptual disturbance with persistent Mydriasis 2. Sinus tachycardia by electrocardiogram secondary to #1 3. Acute Toxic encephalopathy secondary to #1 4. Renal insufficiency secondary to #1, resolved 5. Hypertension 6. Hyperlipidemia 7. Chronic knee pain - Secondary Discharge Diagnosis Chronic Problems: Chronic Problems (Last Reviewed 09/01/19 @ 22:[address] Tigre Zimmerman MD) Hyperlipidemia (Chronic) Essential (primary) hypertension (Chronic) Hospital Course and Treatment Dr. Jefefrson ICU Operations: None Procedures: EKG Summary of Care Provided: The patient is a 49 y/o M w/ PMHx: HTN, HLD, Chronic knee pain who presented to the [facility] ED on 09/01/19 with history of onset significant altered mental status following ingestion of 2 g of cannabis oil which she reportedly takes for chronic knee pain and normally takes a decreased dose but felt that potentially taking little bit more could improve his discomfort with no specific intention for overdose however his symptoms continued and he became tachycardic as well as mildly agitated and lethargic prompting ED presentation. Poison control was contacted when patient presented to the ED with continued close observation recommendation. In the ED patient was tachycardic, tachypneic with mild renal insufficiency with creatinine increased to 1.34 therefore patient given ongoing lethargy and fatigue was admitted to the ICU with transplant case manager consultation with continued hydration. Patient clinically improved faster than expected and once he was more alert diet was initiated and once he was up and ambulating with no further significant lethargy or symptoms he was discharged to home with recommended follow-up closely with his primary care physician with evaluation of CBD oil intake. DAY OF DISCHARGE PROGRESS NOTE: Subjective: Patient without acute event overnight per self and nursing report. Patient was lethargic, up and alert, talking, eager for breakfast and discharge. Patient up in the room with staff at a later time with no difficulties. Patient denies fever, chills, nausea, emesis, abdominal pain, chest pain or dyspnea. Patient agreeable to discharge to home given return to baseline. Patient will be discharged with follow-up with primary care physician within 3-5 days. Outpatient prescription given for therapies for chronic knee pain. Objective: T 98.4, heart rate 71, BP 150/96, respiratory rate 17, 97% on 2 L nasal cannula. Physical Examination: General: awake, alert, oriented x 3, improved from initial presentation, cooperative, seated upright in the you bed, NAD. Skin: normal color, turgor, no icterus, cyanosis. HEENT: AT/NC, EOMI, PERRLA, mildly dry MM. Lungs: CTA bilaterally, moderate effort, mild decrease BL bases, no rales, ronchi or wheezing; Heart: Regular rate and rhythm; no gallop, rub audible. Abdomen: soft, NTTP, ND, normal BS. Extremities: no cyanosis, clubbing, or edema. Neurological: patient awake, alert, oriented as noted; cognitive function appears now intact upon questioning,; pupils equally reactive to light and accomodation; cranial nerves II-XII grossly normal, moving all 4 extremities, strength mildly global decreased, improved since initial ED presentation. Psychiatric: affect appears mildly fatigued otherwise normal, no acute evidence of depressive or anxiety feelings. Assessment and Plan: Please see hospital summary above. Patient Problems: Active and Suspected Problems (Last Reviewed 09/01/19 @ 22:[address] Tigre Zimmerman MD) Cannabis abuse with intoxication with perceptual disturbance (Acute) Mydriasis (persistent), not due to mydriatics (Acute) Sinus tachycardia by electrocardiogram (Acute) Toxic encephalopathy (Acute) Accidental cannabis poisoning (Acute) - Physical Exam Vitals/I&O's: Vital Signs Temp Pulse Resp BP Pulse Ox 98.4 F 71 17 150/96 H 97 09/02/19 07:00 09/02/19 07:00 09/02/19 07:00 09/02/19 07:00 09/02/19 07:15 Oxygen Flow Rate (L/min) 2 Oxygen Delivery Method Nasal Cannula Weight: 194 lb 3.636 oz Body Mass Index (BMI) 27.6 Intake and Output for Last 24 Hours 08/31/19 09/01/19 09/02/19 23:59 23:59 23:59 Intake Total 100.25 / 100.25 2320 / 2320 Output Total 850 / 850 825 / 825 Balance -749.75 / -749.75 1495 / 1495 Laboratory Results 09/01/19 19:24: WBC 4.0 L, RBC 5.06, Hgb 16.2, Hct 45.9, MCV 90.7, MCH 32.0, MCHC 35.3, RDW Std Deviation 37.8, RDW Coeff of Alexi 11.5 L, Plt Count 222, MPV 9.5, Immature Gran % (Auto) 0.800, Neut % (Auto) 62.3, Lymph % (Auto) 22.0, [place] % (Auto) 8.8, Eos % (Auto) 4.8, Baso % (Auto) 1.3 H, Absolute Neuts (auto) 2.5, Absolute Lymphs (auto) 0.87, Nucleated RBC % 0 09/01/19 19:24: Sodium 140, Potassium 3.2 L, Chloride 103, Carbon Dioxide 29.0, Anion Gap 8, BUN 15, Creatinine 1.34 H, Estim Creat Clear Calc 68.85, Est GFR (MDRD) Af Amer 73, Est GFR (MDRD) Non-Af 60, BUN/Creatinine Ratio 11.2, Glucose 118 H, Calcium 9.1, Total Bilirubin 0.50, AST 29, ALT 55, Alkaline Phosphatase 73, Total Protein 7.2, Albumin 3.6, Globulin 3.6, Albumin/Globulin Ratio 1.0 09/01/19 19:24: Lactic Acid 1.8 09/01/19 21:52: Sodium 142, Potassium 3.8, Chloride 108 H, Carbon Dioxide 29.0, Anion Gap 5, BUN 14, Creatinine 1.22, Estim Creat Clear Calc 75.63, Est GFR (MDRD) Af Amer 81, Est GFR (MDRD) Non-Af 67, BUN/Creatinine Ratio 11.5, Glucose 109 H, Calcium 8.9, Magnesium 2.3 09/01/19 21:52: Phosphorus 2.7, Troponin I 0.030 09/01/19 22:25: POC Glucose 128 H 09/02/19 01:00: Troponin I 0.024 09/02/19 04:05: WBC 3.9 L, RBC 4.56 L, Hgb 14.6, Hct 41.4, MCV 90.8, MCH 32.0, MCHC 35.3, RDW Std Deviation 37.9, RDW Coeff of Alexi 11.5 L, Plt Count 191, MPV 9.6, Immature Gran % (Auto) 0.500, Neut % (Auto) 67.1, Lymph % (Auto) 18.9 L, [place] % (Auto) 9.3, Eos % (Auto) 3.4, Baso % (Auto) 0.8, Absolute Neuts (auto) 2.6, Absolute Lymphs (auto) 0.73 L, Nucleated RBC % 0 09/02/19 04:05: Sodium 141, Potassium 4.0, Chloride 109 H, Carbon Dioxide 28.0, Anion Gap 4 L, BUN 12, Creatinine 1.02, Estim Creat Clear Calc 90.45, Est GFR (MDRD) Af Amer 100, Est GFR (MDRD) Non-Af 82, BUN/Creatinine Ratio 11.8, Glucose 105, Calcium 8.4 L, Albumin 2.8 L 09/02/19 04:05: Troponin I < 0.015 Current Medications Dextrose (D50w Syringe) 0 gm IV X1 PRN; Protocol PRN Reason: Hypoglycemia Enoxaparin Sodium (Lovenox) 40 mg SC DAILY [facility] Last Admin: 09/02/19 10:37 Dose: Not Given Documented by: Famotidine (Pepcid) 20 mg PO BID [facility] Last Admin: 09/02/19 10:37 Dose: 20 mg Documented by: Glucagon () 1 mg IM .X1 PRN PRN Reason: Hypoglycemia Hydralazine HCl (Apresoline Iv) 10 mg IV Q4H PRN PRN PRN Reason: SBP > 160 Sodium Chloride () 250 mls @ 15 mls/hr IV .[id number] PRN PRN Reason: Saline Flush Last Infusion: 09/01/19 22:32 Dose: 0 mls/hr Documented by: Sodium Chloride () 250 mls @ 15 mls/hr IV .[id number] PRN PRN Reason: Additional IVPB Infusion Sodium Chloride () 1,000 mls @ 150 mls/hr IV .[id number] DARREL Last Admin: 09/02/19 09:27 Dose: 150 mls/hr Documented by: Ondansetron HCl (Zofran) 4 mg IV Q8H PRN PRN PRN Reason: NAUSEA/VOMITING Sodium Chloride () 10 - 40 ml IV UD PRN PRN Reason: SALINE FLUSH Last Admin: 09/01/19 22:41 Dose: 10 ml Documented by: Discharge Activity: - - Use assist devices as needed. Rx given at discharge for outpatient therapy to assist with your chronic knee pain. May resume sexual activity in: No Restrictions Weight Bearing Status: Weight bearing as tolerated Call your doctor if you observe: Fever of 101 or Higher, Inability to urinate, Inability to have a bowel movement, Shortness of breath, Dizziness, Fainting spells, Chest pain, Uncontrolled pain Home Medications: Medications to take at Discharge hydrochlorothiazide 25 mg tablet 25 mg PO .daily at noon #90 tab 04/19/19 lisinopril 20 mg tablet 20 mg PO QAM #1 tab 04/19/19 Primary Care Physician: Lyndsay Hardy DO [Primary Care Provider] - Please follow up with your Primary Care Physician in: Follow-up within 3-5 days to review admission. Patient Instructions: Reducing Knee Pain and Swelling, Understanding Marijuana Abuse, ED Knee Pain UKO Disposition: Home Minutes spent on discharge:: 35 Patient Condition:: Fair Medical Necessity - Tobacco Use Smoking Status: Current some day smoker Tobacco Use: Cigars Meaningful Use Info Meaningful Use Diagnoses (Choose all that apply): None applicable Inpatient E&M: 51932 Disch Hosp
== END 2019-09-02 15:30 | disposition home or self-care (01) | DRG 917 ==
LOC: ED 20:06 → ICU 22:25
PROVIDERS: Admitting Provider Hospitalist; Emergency Provider Emergency Medicine; Visit Provider Family Medicine
DX: T40.7X1A Poisoning by cannabis (derivatives), accidental (unintentional), initial encounter (principal); G92 Toxic encephalopathy; R00.0 Tachycardia, unspecified; F12.122 Cannabis abuse with intoxication with perceptual disturbance; Y92.9 Unspecified place or not applicable; N28.9 Disorder of kidney and ureter, unspecified; E87.6 Hypokalemia; M25.569 Pain in unspecified knee; G89.29 Other chronic pain; I10 Essential (primary) hypertension; E78.5 Hyperlipidemia, unspecified; K21.9 Gastro-esophageal reflux disease without esophagitis; F17.290 Nicotine dependence, other tobacco product, uncomplicated; Z79.899 Other long term (current) drug therapy
CPT/HCPCS: 51702; 80048; 80053; 82040; 82962; 83605; 83735; 84100; 84484; 85025; 93005; 99285; 99406; J7030; J7050; A4216; J3490